=== PATIENT | female | born 1950 | race Caucasian/White ===

== ENCOUNTER 2020-11-07 05:40 | Day surgery (SDC) | payer OTHER ==
[~2020-11-07 05:40] MED LIST: ANTIVERT25 M1 PO; LEVOXYL100 MCG PO
== END 2020-11-07 10:35 | disposition home or self-care (01) ==
LOC: AMB-ENDOS 05:40
PROVIDERS: ATTEND Colon & Rectal Surgery
DX: D12.3 Benign neoplasm of transverse colon (principal); D12.5 Benign neoplasm of sigmoid colon; D12.7 Benign neoplasm of rectosigmoid junction; K62.82 Dysplasia of anus; Z20.822 Contact with and (suspected) exposure to COVID-19